=== PATIENT | female | born 1985 | race Caucasian/White ===

== ENCOUNTER 2022-01-10 15:37 | Outpatient (CLI) | payer OTHER, SELFPAY ==
[2022-01-12 18:47] LABS: Estradiol Premenol Female <20 pg/mL
[2022-01-12 23:00] LABS: Prolactin 4.5 ng/mL (2.8-29.2)
== END 2022-01-10 15:38 | disposition home or self-care (01) ==
PROVIDERS: PCP Internal Medicine; Visit Provider Registered Nurse
DX: N97.9 Female infertility, unspecified (principal); N91.2 Amenorrhea, unspecified
CPT/HCPCS: 82670; 83001; 84146; 84443

== ENCOUNTER 2022-01-25 15:52 | Outpatient (CLI) | payer OTHER, SELFPAY ==
[2022-01-25 15:00] LABS: Hemoglobin A1C* 9.9 % (0-5.6)
[2022-01-25 17:34] LABS: Albumin* 4.6 g/dL (3.3-5.0); Chloride* 101 mmol/L (96-114)
[2022-01-25 17:35] LABS: Potassium* 5.3 mmol/L (3.6-5.1); Sodium* 139 mmol/L (135-149)
[2022-01-25 17:37] LABS: Alkaline Phosphatase* 104 U/L (40-150); Aspartate Amino Transferase* 22 U/L (12-35); Bilirubin Total* 0.4 mg/dL (0.1-1.5); Blood Urea Nitrogen* 17 mg/dL (5-24); Carbon Dioxide* 28 mmol/L (20-32); Creatinine* 0.5 mg/dL (0.5-1.5); Estimated Glomerular Filt Rate 125 ml/min; Total Protein* 7.3 g/dL (6.0-8.3)
[2022-01-25 17:38] LABS: Alanine Aminotransferase* 24 U/L (4-35); Calcium* 9.8 mg/dL (8.4-10.6); Glucose* 190 mg/dL (60-115)
[2022-01-25 17:45] LABS: Creatinine Urine 150.2 mg/dL
[2022-01-25 17:50] LABS: Microalbumin Creatinine Ratio 0 mg/g (0-30); Microalbumin Urine 1 mg/dL
== END 2022-01-25 15:53 | disposition home or self-care (01) ==
PROVIDERS: PCP Internal Medicine; Visit Provider Internal Medicine
DX: E11.9 Type 2 diabetes mellitus without complications (principal); I10 Essential (primary) hypertension; E66.9 Obesity, unspecified; N91.2 Amenorrhea, unspecified
CPT/HCPCS: 80053; 82043; 82570; 83036

== ENCOUNTER 2022-03-24 04:07 | Emergency (ER) | payer OTHER, SELFPAY ==
[2022-03-24 04:18] VITALS: BP 97/84; PULSE 90; RESP 20; TEMP 35.9; O2SAT 97; BMI 37.8
--- NOTE | 2022-03-24 04:29 | ED.SOB ---
HPI - SOB/Dyspnea General Chief Complaint: Shortness of Breath/Dyspnea Stated Complaint: Shortness of breath Time Seen by Provider: 03/24/22 04:29 History of Present Illness HPI Narrative: Pt is a 36 year old woman who comes in as she is out of her albterol solution for her nebulizer and feels congested tonight. Pt has no cough, sputum production, fevers, chills, shortness of breath. Pt states that she often feels congested like this and that albuterol nebulizer treatments are helpful for her. Pt is otherwise in good health. Pt's symptoms started this evening. Related Data Previous Rx's Medication Instructions Recorded albuterol sulfate 2.5 mg/3 mL 2.5 mg (3 mL) inhalation Q6H 03/24/22 (0.083 %) solution for nebulization Asthma #75 mL Review of Systems Status of ROS: Reports: 10 or more systems reviewed and unremarkable except as noted in History and below [facility] Medical History (Updated 03/24/22 @ 04:34 by Russell Castillo MD) Asthma Social History Smoking Status: Never smoker Do you use any of these nicotine containing products: None Second hand tobacco smoke exposure: No How often do you have a drink containing alcohol: never AUDIT-C Alcohol total score: 0 Non-prescribed substance use: denies use service: No Exam Narrative: Exam Narrative: EXAM GENERAL: Patient appears comfortable and well. EYES: No scleral icterus. THYROID: no thyroid nodules or thyromegaly. LYMPH: No supraclavicular or cervical lymphadenopathy. SKIN: Visible skin seen during exam normal or with benign process only. EXT: No dependent lower extremity pedal edema. HEART: Regular rate and rhythm with no murmurs, rubs, or gallops. LUNGS: Clear to auscultation bilaterally with no crackles or wheezes. ABD: Soft, non tender, non distended. PSYCH: Good eye contact, speech is not pressured. Const: Vital Signs, click to edit/add: Vital Signs - 24 hr 03/24/22 04:18 Temperature 96.6 F L Pulse Rate [Left P ulse Oximeter] 90 Respiratory Rate 20 Blood Pressure [Ri ght Upper Arm] 97/84 Pulse Oximetry 97 Oxygen Delivery Me thod Room Air Course Course Hospital Course: Pt seen and examined. Vital Signs Vital signs: Initial Vital Signs Temperature 96.6 F L 03/24/22 04:18 Temperature Source Temporal Artery Scan 03/24/22 04:18 Pulse Rate 90 03/24/22 04:18 Respiratory Rate 20 03/24/22 04:18 Blood Pressure 97/84 03/24/22 04:18 Blood Pressure Mean 88 03/24/22 04:18 Blood Pressure Position Semi-Fowlers 03/24/22 04:18 Pulse Oximetry 97 03/24/22 04:18 Oxygen Delivery Method 03/24/22 04:18 Vital Signs Temperature 96.6 F L 03/24/22 04:18 Pulse Rate 90 03/24/22 04:18 Respiratory Rate 20 03/24/22 04:18 Blood Pressure 97/84 03/24/22 04:18 Pulse Oximetry 97 03/24/22 04:18 Oxygen Delivery Method 03/24/22 04:18 Temperature 96.6 F L 03/24/22 04:18 Pulse Rate 90 03/24/22 04:18 Respiratory Rate 20 03/24/22 04:18 Blood Pressure 97/84 03/24/22 04:18 Pulse Oximetry 97 03/24/22 04:18 Oxygen Delivery Method 03/24/22 04:18 MDM - SOB/Dyspnea MDM Narrative Medical decision making narrative: Pt presents as she feels congested and is out of her albuterol nebulizer treatments. Pt has a normal exam and vital signs. Pt's shows no signs of significant illness. Triple swab collected. Prescription for albuterol nebs sent in to her pharmacy. Differential Diagnosis Differential diagnosis: Likely acute exacerbation of chronic obstructive airways disease, congestive heart failure, community acquired pneumonia, asthma with exacerbation and pulmonary embolism Discharge Plan Discharge Clinical Impression: Asthma with acute exacerbation Patient Disposition: Home, Self-Care Condition: Stable Instructions: Asthma (ED) Activity Level: No Restrictions Discharge Diet: Regular Prescriptions: New albuterol sulfate 2.5 mg /3 mL (0.083 %) solution for nebulization 2.5 mg inhalation Q6H Qty: 75 2RF Follow Up/Referrals: Kerline Dennis MD [Staff Physician] - Stand Alone Forms: [email or web address] Info Instructions
[2022-03-24 05:03] LABS: PCR FLU A Negative PCR FLU A (Negative); PCR FLU B Negative PCR FLU B (Negative); PCR RSV Negative PCR RSV (Negative); SARS PCR* Negative SARS-CoV-2 (Negative)
== END 2022-03-24 04:45 | disposition home or self-care (01) ==
LOC: ED 04:35
PROVIDERS: Emergency Provider Internal Medicine; PCP Internal Medicine
DX: Z20.822 Contact with and (suspected) exposure to COVID-19 (principal); J45.901 Unspecified asthma with (acute) exacerbation
CPT/HCPCS: 87502; 87634; 87635; 99283; 99284

== ENCOUNTER 2022-05-23 14:40 | Outpatient (CLI) | payer OTHER, SELFPAY | END 2022-05-23 14:41 | disposition home or self-care (01) | PROVIDERS: PCP Internal Medicine; Referring Provider Internal Medicine; Visit Provider Internal Medicine | DX: U07.1 COVID-19 (principal); J32.9 Chronic sinusitis, unspecified | CPT/HCPCS: 87635 ==